=== PATIENT | female | born 1985 | race Caucasian/White ===

== ENCOUNTER 2024-05-14 14:00 | Emergency (ER) | payer OTHER ==
[~2024-05-14] VITALS: Ht 144.7 cm; Wt 100.2 kg
[2024-05-14] MEDS ORDERED: SODIUM CHLORIDE 0.9% 500 ML IV ONE (15:40)
[2024-05-14] MEDS ORDERED: Pantoprazole Sodium 40 MG VIAL IV ONE (15:45)
[2024-05-14 15:53] LABS: BASO # 0.1 10*3/uL (0.0-0.1); BASO % 0.7 % (0.0-1.0); EOS # 0.2 10*3/uL (0.0-0.4); EOS % 1.9 % (1.0-4.0); HEMATOCRIT 39.8 % (37.0-47.0); MEAN CELL VOLUME 81.9 fl (81.0-99.0); MEAN CORPUSCULAR HGB 25.1 pg (27.0-31.0); MEAN CORPUSCULAR HGB CONC 30.7 g/dl (33.0-37.0); MONO # 0.7 10*3/uL (0.1-1.0); MONO % 8.2 % (3.0-9.0); NEUT # 5.6 10*3/uL (2.3-7.9); NEUT % 64.5 % (47.0-73.0); PLATELET COUNT AUTOMATED 373 10*3/uL (130-400); RED BLOOD COUNT 4.86 10*6/uL (4.10-5.10); RED CELL DISTRI WIDTH 15.1 % (0-14.5); WHITE BLOOD COUNT 8.7 10*3/uL (4.8-10.8)
[2024-05-14 15:58] LABS: BILIRUBIN Negative (Negative); BLOOD Negative (Negative); CLARITY Clear (Clear); COLOR Yellow (Yellow); GLUCOSE Negative (Negative); KETONE 3+ (Negative); LEUKO ESTERASE Trace (Negative); NITRITE Negative (Negative); PH 5.5 (4.5-8.0); SPECIFIC GRAVITY 1.025 (1.001-1.030); UROBILINOGEN 0.2 E.U./dl (0.0-1.0)
[2024-05-14] MEDS ORDERED: Ondansetron Hydrochloride 4 MG TAB SL ONE (16:00)
[2024-05-14 16:19] LABS: ALKALINE PHOSPHATASE 60 U/L (46-116); BUN 8 mg/dl (9-23); CHLORIDE 105 mmol/L (98-107); LIPASE 30 U/L (12-53); POTASSIUM 3.5 mmol/L (3.4-5.1); SGPT/ALT 10 U/L (5-49); TOTAL PROTEIN 7.1 gm/dL (6.0-8.0)
[2024-05-14 16:22] LABS: BACTERIA 2+; MUCOUS 2+
[2024-05-14] MEDS ORDERED: cefTRIAXone Sodium 1 GM/10 ML SYR IV ONE (16:40)
[2024-05-14] MEDS ORDERED: CEPHALEXIN500 M1 PO (18:46)
[2024-05-14] MEDS ORDERED: PROTONIX40 MG PO (18:46)
== END 2024-05-14 18:58 | disposition home or self-care (01) ==
LOC: ED 14:00
PROVIDERS: Emergency Medicine
DX: N39.0 Urinary tract infection, site not specified (principal); K29.00 Acute gastritis without bleeding

== ENCOUNTER → 2024-05-29 | Outpatient (CLI) | payer OTHER ==
[~2024-05-29] MED LIST: CEPHALEXIN500 M1 PO; PROTONIX40 MG PO
== END | disposition home or self-care (01) ==
LOC: RESCLI 03:27
PROVIDERS: ATTEND Internal Medicine
DX: F41.9 Anxiety disorder, unspecified (principal); R10.9 Unspecified abdominal pain; R19.7 Diarrhea, unspecified; K21.9 Gastro-esophageal reflux disease without esophagitis; B00.9 Herpesviral infection, unspecified; Z78.9 Other specified health status; Z79.899 Other long term (current) drug therapy; Z88.8 Allergy status to other drugs, medicaments and biological substances

== ENCOUNTER → 2024-05-31 | Outpatient (CLI) | payer OTHER ==
[2024-05-31 10:24] LABS: CHOLESTEROL 240 mg/dL (<200); LDL CHOLESTEROL 130 mg/dL (9-159)
== END | disposition home or self-care (01) ==
LOC: LAB 09:30
PROVIDERS: ATTEND Family Medicine
DX: R10.9 Unspecified abdominal pain (principal)

== ENCOUNTER → 2024-06-04 | Outpatient (CLI) | payer OTHER | END | disposition home or self-care (01) | LOC: US 07:29 | PROVIDERS: ATTEND Internal Medicine | DX: K76.0 Fatty (change of) liver, not elsewhere classified (principal); K80.20 Calculus of gallbladder without cholecystitis without obstruction; R10.9 Unspecified abdominal pain ==